=== PATIENT | male | born 1990 | race Caucasian/White ===

== ENCOUNTER 2025-02-03 01:34 | Emergency (ER) | payer OTHER ==
[~2025-02-03] VITALS: Ht 170.2 cm; Wt 70.5 kg
[2025-02-03 01:46] VITALS: BP 138/94; PULSE 84; RESP 20; TEMP 98.9; O2SAT 100
[2025-02-03] MEDS: LIDOCAINE 1% 10 ML VIAL ID ONE (02:03)
[2025-02-03] MEDS: DOXYCYCLINE HYCLATE 100 MG TABLET PO ONE (02:04)
== END 2025-02-03 02:24 ==
LOC: EMS 01:37
DX: L02.31 Cutaneous abscess of buttock (principal)
CPT/HCPCS: 99283; 10060; J3490